=== PATIENT | female | born 1945 | race Caucasian/White ===

== ENCOUNTER 2017-06-30 10:35 | Inpatient (IN) ==
[2017-06-30] MEDS ORDERED: SODIUM CHLORIDE 0.9% 500 ML IV STA (10:56)
[2017-06-30] MEDS ORDERED: ALBUTEROL/IPRATROPIUM 3 ML NEB RESP TX STA (11:03)
[2017-06-30 12:08] LABS: Apearance,Urine CLOUDY (Clear); Bacteria,Urine Many /HPF (Few); Bilirubin,Urine Negative (Negative); Blood, Urine Moderate mg/dL (Negative); Glucose,Urine (UA) Negative (Negative); Ketones,Urine 20 mg/dL (Negative); Mucus,Urine Many /LPF (Occasional); Nitrite,Urine Positive (Negative); Protein,Urine 100 MG/DL; RBC,Urine 120 /HPF (0-4); Squamous Epithelial Cell,Urine Occasional /HPF (0-10); Urine Color Amber (Yellow); Urine Specific Gravity 1.024 (1.001-1.035); WBC,Urine 195 /HPF (0-6)
[2017-06-30 12:13] LABS: Basophils # 0.1 10*3/uL (0.0-0.2); Basophils % 0.5 % (0.0-0.8); Eosinophils % 0.2 % (0.00-10.9); Hematocrit 44.7 VOL% (35.7-47.0); Hemoglobin 14.7 GM/DL (12.0-16.0); Lymphocytes # 1.7 10*3/uL (1.4-4.0); Lymphocytes % 17.6 % (21.3-54.2); Mean Corpuscular HGB Conc 32.9 GM/DL (32-36); Mean Corpuscular Hemoglobin 33 PG (27-34); Mean Platelet Volume 10.2 FL (9.6-12.0); Monocytes # 0.9 10*3/uL (0.11-0.8); Monocytes % 9.4 % (1.7-12.7); Neutrophils # 6.9 10*3/uL (1.4-7.4); Neutrophils % 71.3 % (38.7-73.9); Platelet Count 220 T/CUMM (130-400); Red Blood Count 4.47 MC/CUMM (3.8-5.5); Red Cell Distribution Width 13.9 % (9.3-17.3); White Blood Count 9.6 T/CUMM (4-12)
[2017-06-30 12:17] LABS: Barbiturates Screen,Urine Negative (Negative); Benzodiazepines Screen,Urine Positive (Negative); Cannabinoid Screen,Urine Negative (Negative); Opiate Screen,Urine Positive (Negative); Phencyclidine Screen,Urine Negative (Negative)
[2017-06-30] MEDS ORDERED: cefTRIAXone 1,000 MG in SODIUM CHLORIDE 0.9% 100 ML IV STA (12:20)
[2017-06-30] MEDS ORDERED: cefTRIAXone 1,000 MG VIAL ONE (12:24)
[2017-06-30 12:25] LABS: INR 1.1; PT Patient Result 11.5 SECS
[2017-06-30 12:39] LABS: Ammonia < 10 UMOL/L (11-32)
[2017-06-30 12:49] LABS: Alanine Aminotransferase 31 U/L (13-56); Albumin 2.9 G/DL (3.4-5.0); Alkaline Phosphatase 80 U/L (45-117); Aspartate Amino Transferase 43 U/L (0-37); Blood Urea Nitrogen 24 MG/DL (7-18); Calcium 8.7 MG/DL (8.5-10.1); Glucose 163 MG/DL (74-106); Osmolality,Calculated 297.6 MOS/KG (273-304); Potassium 4.1 MMOL/L (3.5-5.1); Sodium 146 MMOL/L (136-145); Total Protein 7.8 G/DL (6.4-8.3); Troponin I Only < 0.015 NG/ML (0.00-0.045)
[2017-06-30] MEDS ORDERED: ALBUTEROL 2.5 MG/3 ML NEB RESP TX PRN (13:58)
[2017-06-30] MEDS ORDERED: PIPERACILLIN/TAZOBACTAM 3,375 MG in SODIUM CHLORIDE 0.9% 100 ML IV SCH (14:00)
[2017-06-30] MEDS ORDERED: DEXTROSE 50% 25 GM/50 ML VIAL IV PRN (14:06)
[2017-06-30] MEDS ORDERED: GLUCAGON 1 MG VIAL IM PRN (14:06)
[2017-06-30 14:41] LABS: Risk Ratio 3.45; VLDL CHOLESTEROL 29.8 MG/DL
[2017-06-30] MEDS: methylPREDNISolone SOD SUC 40 MG/1 ML VIAL IV SCH ×2 (16:02→21:44)
[2017-06-30] MEDS: DEXTROSE 5% NACL 0.45% 1,000 ML IV SCH (16:05)
[2017-06-30] MEDS: AZITHROMYCIN INJ 500 MG in SODIUM CHLORIDE 0.9% 250 ML IV SCH (16:07)
[2017-06-30] MEDS: INSULIN REGULAR 100 UNIT/ML SUBCUT SCH ×2 (16:34→21:20)
[2017-06-30] MEDS: ALBUTEROL/IPRATROPIUM 3 ML NEB RESP TX SCH (20:02)
[2017-06-30] MEDS: GABAPENTIN 600 MG TABLET PO SCH (21:28)
[2017-06-30] MEDS: ARIPiprazole 2 MG TABLET PO SCH (21:28)
[2017-06-30] MEDS: metFORMIN 500 MG TABLET PO SCH (21:28)
[2017-06-30] MEDS: FAMOTIDINE 20 MG TABLET PO SCH (21:28)
[2017-06-30] MEDS: EZETIMIBE 10 MG TABLET PO SCH (21:41)
[2017-07-01] MEDS: ALBUTEROL/IPRATROPIUM 3 ML NEB RESP TX SCH ×4 (01:59→19:01)
[2017-07-01] MEDS: DEXTROSE 5% NACL 0.45% 1,000 ML IV SCH ×2 (02:05→13:19)
[2017-07-01] MEDS: methylPREDNISolone SOD SUC 40 MG/1 ML VIAL IV SCH ×3 (05:38→21:58)
[2017-07-01 05:44] LABS: Basophils % 0.2 % (0.0-0.8); Hematocrit 41.3 VOL% (35.7-47.0); Hemoglobin 14.1 GM/DL (12.0-16.0); Immature Granulocytes Absolute 0.16 #; Lymphocytes # 0.9 10*3/uL (1.4-4.0); Lymphocytes % 10.8 % (21.3-54.2); Mean Corpuscular HGB Conc 34.1 GM/DL (32-36); Mean Corpuscular Hemoglobin 34 PG (27-34); Mean Corpuscular Volume 98.3 FL (87-102); Mean Platelet Volume 10.5 FL (9.6-12.0); Monocytes # 0.4 10*3/uL (0.11-0.8); Monocytes % 5.1 % (1.7-12.7); Neutrophils # 6.6 10*3/uL (1.4-7.4); Neutrophils % 81.9 % (38.7-73.9); Platelet Count 206 T/CUMM (130-400); Red Cell Distribution Width 13.7 % (9.3-17.3); White Blood Count 8.1 T/CUMM (4-12)
[2017-07-01 06:34] LABS: Albumin 2.6 G/DL (3.4-5.0); Bilirubin,Total 0.6 MG/DL (0.2-1.0); Calcium 8.7 MG/DL (8.5-10.1); Total Protein 7.5 G/DL (6.4-8.3)
[2017-07-01] MEDS ORDERED: VILAZODONE HCL 40 MG PO SCH (09:00)
[2017-07-01] MEDS: DILTIAZEM CD 300 MG CAPSULE PO SCH (10:49)
[2017-07-01] MEDS: ARIPiprazole 2 MG TABLET PO SCH ×2 (10:49→20:44)
[2017-07-01] MEDS: cefTRIAXone 2,000 MG in SYRINGE 1 EACH IV SCH (10:49)
[2017-07-01] MEDS: PANTOPRAZOLE 40 MG TABLET PO SCH (10:50)
[2017-07-01] MEDS: POTASSIUM CHLORIDE 20 MEQ TABLET PO SCH (10:50)
[2017-07-01] MEDS: GABAPENTIN 600 MG TABLET PO SCH ×2 (10:50→20:44)
[2017-07-01] MEDS: AZITHROMYCIN 250 MG TABLET PO SCH (10:50)
[2017-07-01] MEDS: CLOPIDOGREL 75 MG TABLET PO SCH (10:50)
[2017-07-01] MEDS: CETIRIZINE 10 MG TABLET PO SCH (10:51)
[2017-07-01] MEDS: PRAVASTATIN 40 MG TABLET PO SCH (10:51)
[2017-07-01] MEDS: MONTELUKAST 10 MG TABLET PO SCH (10:51)
[2017-07-01] MEDS: NICOTINE 21 MG/24 HR PATCH TRANSDERM SCH (10:55)
[2017-07-01] MEDS: metFORMIN 500 MG TABLET PO SCH (10:55)
[2017-07-01] MEDS: INSULIN REGULAR 100 UNIT/ML SUBCUT SCH ×4 (11:00→20:44)
[2017-07-01] MEDS: FAMOTIDINE 20 MG TABLET PO SCH ×2 (11:00→20:44)
[2017-07-01] MEDS: AZITHROMYCIN INJ 500 MG in SODIUM CHLORIDE 0.9% 250 ML IV SCH (17:26)
[2017-07-01] MEDS: EZETIMIBE 10 MG TABLET PO SCH (20:44)
[2017-07-02] MEDS: ALBUTEROL/IPRATROPIUM 3 ML NEB RESP TX SCH ×5 (00:48→19:31)
[2017-07-02] MEDS: DEXTROSE 5% NACL 0.45% 1,000 ML IV SCH ×2 (02:00→13:29)
[2017-07-02 05:26] LABS: Basophils % 0.2 % (0.0-0.8); Hemoglobin 13.4 GM/DL (12.0-16.0); Immature Granulocytes % 1.8 %; Immature Granulocytes Absolute 0.15 #; Lymphocytes # 0.8 10*3/uL (1.4-4.0); Lymphocytes % 9.8 % (21.3-54.2); Mean Corpuscular HGB Conc 33.5 GM/DL (32-36); Mean Corpuscular Hemoglobin 33 PG (27-34); Mean Corpuscular Volume 98.8 FL (87-102); Mean Platelet Volume 10.3 FL (9.6-12.0); Monocytes # 0.2 10*3/uL (0.11-0.8); Monocytes % 2.3 % (1.7-12.7); Neutrophils # 7.1 10*3/uL (1.4-7.4); Neutrophils % 85.9 % (38.7-73.9); Platelet Count 194 T/CUMM (130-400); Red Blood Count 4.05 MC/CUMM (3.8-5.5); Red Cell Distribution Width 13.4 % (9.3-17.3); White Blood Count 8.3 T/CUMM (4-12)
[2017-07-02] MEDS: methylPREDNISolone SOD SUC 40 MG/1 ML VIAL IV SCH ×3 (05:53→23:25)
[2017-07-02 05:59] LABS: Albumin 2.7 G/DL (3.4-5.0); Bilirubin,Total 1.4 MG/DL (0.2-1.0); Calcium 8.8 MG/DL (8.5-10.1); Osmolality,Calculated 291.5 MOS/KG (273-304); Potassium 4.4 MMOL/L (3.5-5.1)
[2017-07-02] MEDS: INSULIN REGULAR 100 UNIT/ML SUBCUT SCH ×5 (09:24→23:20)
[2017-07-02] MEDS: NICOTINE 21 MG/24 HR PATCH TRANSDERM SCH (09:25)
[2017-07-02] MEDS: GABAPENTIN 600 MG TABLET PO SCH ×2 (09:25→21:08)
[2017-07-02] MEDS: CLOPIDOGREL 75 MG TABLET PO SCH (09:25)
[2017-07-02] MEDS: CETIRIZINE 10 MG TABLET PO SCH (09:25)
[2017-07-02] MEDS: AZITHROMYCIN 250 MG TABLET PO SCH (09:25)
[2017-07-02] MEDS: PANTOPRAZOLE 40 MG TABLET PO SCH (09:26)
[2017-07-02] MEDS: POTASSIUM CHLORIDE 20 MEQ TABLET PO SCH (09:26)
[2017-07-02] MEDS: MONTELUKAST 10 MG TABLET PO SCH (09:26)
[2017-07-02] MEDS: PRAVASTATIN 40 MG TABLET PO SCH (09:26)
[2017-07-02] MEDS: FAMOTIDINE 20 MG TABLET PO SCH ×2 (09:26→21:08)
[2017-07-02] MEDS: ARIPiprazole 2 MG TABLET PO SCH ×2 (09:29→21:08)
[2017-07-02] MEDS: DILTIAZEM CD 300 MG CAPSULE PO SCH (09:30)
[2017-07-02] MEDS: cefTRIAXone 2,000 MG in SYRINGE 1 EACH IV SCH (09:44)
[2017-07-02] MEDS: FUROSEMIDE 40 MG/4 ML VIAL IV SCH (16:46)
[2017-07-02] MEDS: INSULIN NPH 100 UNIT/ML SUBCUT SCH (16:46)
[2017-07-02] MEDS: EZETIMIBE 10 MG TABLET PO SCH (21:08)
[2017-07-03] MEDS: ALBUTEROL/IPRATROPIUM 3 ML NEB RESP TX SCH ×4 (00:06→19:45)
[2017-07-03] MEDS: INSULIN REGULAR 100 UNIT/ML SUBCUT SCH ×5 (02:29→21:08)
[2017-07-03 05:55] LABS: Basophils % 0.2 % (0.0-0.8); Hematocrit 39.1 VOL% (35.7-47.0); Hemoglobin 13.6 GM/DL (12.0-16.0); Immature Granulocytes % 3.3 %; Immature Granulocytes Absolute 0.34 #; Lymphocytes # 0.9 10*3/uL (1.4-4.0); Lymphocytes % 9.1 % (21.3-54.2); Mean Corpuscular HGB Conc 34.8 GM/DL (32-36); Mean Corpuscular Hemoglobin 33 PG (27-34); Mean Corpuscular Volume 95.1 FL (87-102); Mean Platelet Volume 10.5 FL (9.6-12.0); Monocytes # 0.5 10*3/uL (0.11-0.8); Monocytes % 5.1 % (1.7-12.7); Neutrophils # 8.4 10*3/uL (1.4-7.4); Neutrophils % 82.3 % (38.7-73.9); Platelet Count 188 T/CUMM (130-400); Red Blood Count 4.11 MC/CUMM (3.8-5.5); Red Cell Distribution Width 12.9 % (9.3-17.3); White Blood Count 10.3 T/CUMM (4-12)
[2017-07-03 06:30] LABS: Calcium 8.9 MG/DL (8.5-10.1); Osmolality,Calculated 289.7 MOS/KG (273-304); Potassium 3.2 MMOL/L (3.5-5.1)
[2017-07-03] MEDS: NICOTINE 21 MG/24 HR PATCH TRANSDERM SCH (09:36)
[2017-07-03] MEDS: cefTRIAXone 2,000 MG in SYRINGE 1 EACH IV SCH (09:36)
[2017-07-03] MEDS: methylPREDNISolone SOD SUC 40 MG/1 ML VIAL IV SCH ×2 (09:37→22:09)
[2017-07-03] MEDS: INSULIN NPH 100 UNIT/ML SUBCUT SCH ×2 (09:37→16:41)
[2017-07-03] MEDS: FUROSEMIDE 40 MG/4 ML VIAL IV SCH (09:37)
[2017-07-03] MEDS: DILTIAZEM CD 300 MG CAPSULE PO SCH (09:38)
[2017-07-03] MEDS: MONTELUKAST 10 MG TABLET PO SCH (09:39)
[2017-07-03] MEDS: PANTOPRAZOLE 40 MG TABLET PO SCH (09:39)
[2017-07-03] MEDS: GABAPENTIN 600 MG TABLET PO SCH ×2 (09:39→20:49)
[2017-07-03] MEDS: POTASSIUM CHLORIDE 20 MEQ TABLET PO SCH (09:39)
[2017-07-03] MEDS: CETIRIZINE 10 MG TABLET PO SCH (09:39)
[2017-07-03] MEDS: AZITHROMYCIN 250 MG TABLET PO SCH (09:39)
[2017-07-03] MEDS: CLOPIDOGREL 75 MG TABLET PO SCH (09:39)
[2017-07-03] MEDS: ARIPiprazole 2 MG TABLET PO SCH ×2 (09:39→20:49)
[2017-07-03] MEDS: FAMOTIDINE 20 MG TABLET PO SCH ×2 (09:39→20:50)
[2017-07-03] MEDS: PRAVASTATIN 40 MG TABLET PO SCH (09:39)
[2017-07-03] MEDS ORDERED: POTASSIUM CHLORIDE 20 MEQ TABLET PO ONE (15:00)
[2017-07-03] MEDS: EZETIMIBE 10 MG TABLET PO SCH (20:49)
[2017-07-04] MEDS: ALBUTEROL/IPRATROPIUM 3 ML NEB RESP TX SCH ×4 (00:40→20:14)
[2017-07-04 06:58] LABS: Osmolality,Calculated 295.5 MOS/KG (273-304); Potassium 3.9 MMOL/L (3.5-5.1)
[2017-07-04] MEDS: methylPREDNISolone SOD SUC 40 MG/1 ML VIAL IV SCH (08:58)
[2017-07-04] MEDS: FUROSEMIDE 40 MG/4 ML VIAL IV SCH (08:58)
[2017-07-04] MEDS: GABAPENTIN 600 MG TABLET PO SCH ×2 (08:58→21:08)
[2017-07-04] MEDS: INSULIN NPH 100 UNIT/ML SUBCUT SCH ×3 (08:59→18:25)
[2017-07-04] MEDS: INSULIN REGULAR 100 UNIT/ML SUBCUT SCH ×4 (08:59→21:07)
[2017-07-04] MEDS: FAMOTIDINE 20 MG TABLET PO SCH ×2 (08:59→21:08)
[2017-07-04] MEDS: AZITHROMYCIN 250 MG TABLET PO SCH (09:00)
[2017-07-04] MEDS: CLORAZEPATE 3.75 MG TABLET PO SCH ×2 (09:00→21:08)
[2017-07-04] MEDS: MONTELUKAST 10 MG TABLET PO SCH (09:00)
[2017-07-04] MEDS: CLOPIDOGREL 75 MG TABLET PO SCH (09:01)
[2017-07-04] MEDS: DILTIAZEM CD 300 MG CAPSULE PO SCH (09:01)
[2017-07-04] MEDS: PANTOPRAZOLE 40 MG TABLET PO SCH (09:01)
[2017-07-04] MEDS: ARIPiprazole 2 MG TABLET PO SCH ×2 (09:01→21:08)
[2017-07-04] MEDS: POTASSIUM CHLORIDE 20 MEQ TABLET PO SCH (09:01)
[2017-07-04] MEDS: PRAVASTATIN 40 MG TABLET PO SCH (09:02)
[2017-07-04] MEDS: CETIRIZINE 10 MG TABLET PO SCH (09:02)
[2017-07-04] MEDS: NICOTINE 21 MG/24 HR PATCH TRANSDERM SCH (09:02)
[2017-07-04] MEDS: cefTRIAXone 2,000 MG in SYRINGE 1 EACH IV SCH (10:04)
[2017-07-04] MEDS: EZETIMIBE 10 MG TABLET PO SCH (21:08)
[2017-07-05] MEDS: ALBUTEROL/IPRATROPIUM 3 ML NEB RESP TX SCH ×2 (01:27→07:14)
[2017-07-05 07:46] VITALS: BP 133/62
[2017-07-05] MEDS: INSULIN REGULAR 100 UNIT/ML SUBCUT SCH (08:32)
[2017-07-05] MEDS: methylPREDNISolone SOD SUC 40 MG/1 ML VIAL IV SCH (08:33)
[2017-07-05] MEDS: FUROSEMIDE 40 MG/4 ML VIAL IV SCH (08:33)
[2017-07-05] MEDS: INSULIN NPH 100 UNIT/ML SUBCUT SCH (08:33)
[2017-07-05] MEDS: CETIRIZINE 10 MG TABLET PO SCH (08:34)
[2017-07-05] MEDS: CLORAZEPATE 3.75 MG TABLET PO SCH (08:34)
[2017-07-05] MEDS: CLOPIDOGREL 75 MG TABLET PO SCH (08:34)
[2017-07-05] MEDS: MONTELUKAST 10 MG TABLET PO SCH (08:34)
[2017-07-05] MEDS: PANTOPRAZOLE 40 MG TABLET PO SCH (08:34)
[2017-07-05] MEDS: cefTRIAXone 2,000 MG in SYRINGE 1 EACH IV SCH (08:34)
[2017-07-05] MEDS: DILTIAZEM CD 300 MG CAPSULE PO SCH (08:34)
[2017-07-05] MEDS: GABAPENTIN 600 MG TABLET PO SCH (08:34)
[2017-07-05] MEDS: AZITHROMYCIN 250 MG TABLET PO SCH (08:34)
[2017-07-05] MEDS: ARIPiprazole 2 MG TABLET PO SCH (08:34)
[2017-07-05] MEDS: FAMOTIDINE 20 MG TABLET PO SCH (08:35)
[2017-07-05] MEDS: POTASSIUM CHLORIDE 20 MEQ TABLET PO SCH (08:35)
[2017-07-05] MEDS: PRAVASTATIN 40 MG TABLET PO SCH (08:35)
[2017-07-05] MEDS: NICOTINE 21 MG/24 HR PATCH TRANSDERM SCH (08:50)
== END 2017-07-05 10:50 | disposition home or self-care (01) | DRG 190 ==
LOC: EDUNIT# → EDBD → N.ED 10:35 → SUATTDRO 12:37 → N.EDINP 12:37 → N.2E 14:50
PROVIDERS: ADMIT Family Medicine; ATTEND Internal Medicine